=== PATIENT | female | born 1945 | race Caucasian/White ===

== ENCOUNTER → 2020-01-04 09:01 | Outpatient (CLI) | payer MEDICARE, SELFPAY ==
--- NOTE | ~2020-01-04 | MMUS_ITS ---
EXAMINATION: MM diagnostic juan miguel BI w dannielle, US breast BI limited HISTORY: Redness and irritation of the right nipple TECHNIQUE: Craniocaudal, mediolateral, and mediolateral oblique 3-D tomosynthesis images of the breas ts were performed and synthetic 2-D images were generated. CAD analysis was submitted and interpreted . High resolution limited left breast ultrasound was performed. COMPARISON: 10/22/2018, 06/12/2017, 01/28/2016, 09/11/2014 BREAST PARENCHYMAL COMPOSITION: The breasts are heterogeneously dense, which may obscure small masses . FINDINGS: MAMMOGRAPHIC FINDINGS: Right breast: There is no evidence of suspicious mass, calcification, or architectural distortion to suggest malignancy. There has been no suspicious interval change. No mammographic correlate is ident ified for the reported irritation and redness of the right nipple. Left breast: There is a 4 mm spiculated mass in the posterior third of the upper outer quadrant of th e breast at the 2:00 location 8 cm from the nipple. ULTRASOUND: There is a 7 mm x 5 mm irregular hypoechoic mass with indistinct margins, posterior acoustic shadowin g, and peripheral vascularity at the 2:00 location 7 cm from the nipple corresponding to the mammogra phic finding in question. No sonographic correlate is identified for the reported irritation and redn ess of the right nipple. IMPRESSION: 1. Suspicious mass in the upper outer quadrant of the left breast. Ultrasound-guided biopsy is recomm ended. 2. No specific mammographic or sonographic correlate is identified for the patient's right nipple irr itation and redness Further evaluation at this time should be based on clinical assessment. Continued follow-up physical examination is recommended. BI-RADS category 5, highly suggestive of malignancy. Reviewed, dictated and finalized at location A. IMPRESSION: 1. Suspicious mass in the upper outer quadrant of the left breast. Ultrasound-g uided biopsy is recommended. 2. No specific mammographic or sonographic correlate is identified for the donnie ent's right nipple irritation and redness Further evaluation at this time shoul d be based on clinical assessment. Continued follow-up physical examination is recommended. BI-RADS category 5, highly suggestive of malignancy.
--- NOTE | ~2020-01-04 | DEXA_ITS ---
Bone Density Report Name: Ruth Abel Age: 74 Sex: Female Ethnicity: White Date of : 1945 Indication: osteopenia; height loss; postmenopausal Referring Provider: YAMIL, ROSEANN Study: Bone densitometry was performed. Exam Date: January 04, 2020 Accession number: [id number] Bone Density: Region BMD T-score Z-score Classification AP Spine (L1-L4) 0.896 -1.4 1.1 Osteopenia Femoral Neck (Left) 0.655 -1.7 0.4 Osteopenia Total Hip (Left) 0.762 -1.5 0.4 Osteopenia Femoral Neck (Right) 0.678 -1.5 0.6 Osteopenia Total Hip (Right) 0.788 -1.3 0.6 Osteopenia Total Hip Mean 0.775 -1.4 0.5 Osteopenia World Health Organization criteria for BMD impression classify patients as: Normal (T-score at or above -1.0), Osteopenia (T-score between -1.0 and -2.5), or Osteoporosis (T-score at or below -2.5). 10-year Fracture Risk(1): Major Osteoporotic Fracture 13% Hip Fracture 3.0% Reported Risk Factors: [place] (), Neck BMD=0.655, BMI=26.2 (1) FRAX(R) Version 3.08. Fracture probability calculated for an untreated patient. Fracture probability may be lower if the patient has received treatment. Previous Exams: Region Exam Age BMD T-score BMD Change BMD Change Date g/cm2 vs Baseline vs Previous AP Spine(L1-L4) 01/04/2020 74 0.896 -1.4 0.055* 0.017 06/12/2017 71 0.878 -1.5 0.038* 0.027* 12/28/2014 69 0.852 -1.8 0.011 -0.013 11/25/2010 65 0.865 -1.7 0.024* 0.024* 11/22/2008 63 0.841 -1.9 Total Hip(Left) 01/04/2020 74 0.762 -1.5 0.034* 0.000 06/12/2017 71 0.762 -1.5 0.033* -0.001 12/28/2014 69 0.762 -1.5 0.034* -0.002 11/25/2010 65 0.764 -1.5 0.036* 0.036* 11/22/2008 63 0.728 -1.8 Total Hip(Right) 01/04/2020 74 0.788 -1.3 0.025 -0.014 06/12/2017 71 0.802 -1.1 0.039* -0.007 12/28/2014 69 0.810 -1.1 0.047* 0.000 11/25/2010 65 0.810 -1.1 0.046* 0.046* 11/22/2008 63 0.763 -1.5 *Denotes significance at 95% confidence level, LSC for AP Spine = 0.022 g/cm2, LSC for Total Hip = 0.027 g/cm2 Clinical Information Provided by Patient: Has used the following medications: Vitamin D, Calcium Patient maximum height was 63 Menopause Age: 47 Drinks caffeinated beverages Onset of menses at age 10 Number of children 3
== END ==
PROVIDERS: Visit Provider Physician Assistant
DX: N64.9 Disorder of breast, unspecified (principal); L30.9 Dermatitis, unspecified; M85.88 Other specified disorders of bone density and structure, other site; Z78.0 Asymptomatic menopausal state
CPT/HCPCS: 76642; 77062; 77066; 77080; G0279

== ENCOUNTER → 2023-10-14 10:24 | Outpatient (CLI) | payer MEDICARE, SELFPAY ==
--- NOTE | ~2023-10-14 | XR_ITS ---
Left Knee Technique: AP, lateral, and sunrise views were obtained. Clinical History: Pain Findings: No fracture or dislocation is seen. Osseous alignment is anatomic. Medial joint line spurri ng noted. Soft tissues are unremarkable. No joint effusion is seen. Impression: Medial joint line spurring. Reviewed, dictated and finalized at location . Impression: Medial joint line spurring.
== END ==
PROVIDERS: PCP Physician Assistant; Visit Provider Physician Assistant
DX: M25.562 Pain in left knee (principal); M25.561 Pain in right knee; M77.8 Other enthesopathies, not elsewhere classified
CPT/HCPCS: 73562